=== PATIENT | male | born 1970 | race Hispanic/Latino ===

== ENCOUNTER 2017-07-09 00:39 | Emergency (ER) | payer MEDICAID, OTHER, SELFPAY ==
[2017-07-09 00:57] VITALS: BMI 30.1
[2017-07-09] MEDS ORDERED: Thiamine 100 mg/ml Inj IM STA (01:20)
[2017-07-09] MEDS ORDERED: Sodium Chloride 0.9% 500 ML IV SCH (01:27)
[2017-07-09] MEDS ORDERED: Sodium Chloride 0.9% 500 ML IV STA (01:31)
[2017-07-09] MEDS ORDERED: Multivitamin (MVI) 10 ML, Thiamine 100 MG, Folic Acid 1 MG in Sodium Chloride 0.9% 1,00... IV ONE (01:31)
[2017-07-09 02:01] LABS: BASO # 0.04 K/mm3 (0.0-2.0); BASO % 0.5 % (0.0-3.0); EOS # 0.3 (0.0-0.7); GRAN # 3.44 (1.4-6.5); GRAN % 40.2 % (50.0-68.0); HEMATOCRIT 42.6 % (42.0-52.0); LYMPH # 4.2 (1.2-3.4); LYMPH % 48.7 % (22.0-35.0); MEAN CELL VOLUME 91.2 fl (80.0-105.0); MEAN CORPUSCULAR HEMOGLOBIN 31.9 pg (25.0-35.0); MEAN PLATELET VOLUME 9.5 fl (7.0-11.0); MONO # 0.6 (0.1-0.6); MONO % 6.6 % (1.0-6.0); RED CELL DISTRIBUTION WIDTH 13.9 % (11.5-14.5); WHITE BLOOD COUNT 8.5 10^3/ul (4.5-11.0)
[2017-07-09 02:20] LABS: ALB/GLOB RATIO 1.3 (1.1-1.8); ALKALINE PHOSPHATASE 66 U/L (38-126); ALT/SGPT 30 U/L (7-56); AMYLASE 53 U/L (35-125); AST/SGOT 27 U/L (17-59); BILIRUBIN,TOTAL 0.6 mg/dL (0.2-1.3); BLOOD UREA NITROGEN 14 mg/dL (7-21); CALCIUM 9.2 mg/dL (8.4-10.5); CARBON DIOXIDE 23 mmol/L (21-33); CHLORIDE 106 mmol/L (98-107); CHOLESTEROL 193 mg/dL (130-200); GFR AFRICAN-AMERICAN > 60; GLUCOSE,RANDOM 100 mg/dL (70-110); LIPASE 136 U/L (23-300); MAGNESIUM 1.8 mg/dL (1.7-2.2); PHOSPHOROUS 4.5 mg/dL (2.5-4.5); POTASSIUM 3.6 mmol/L (3.6-5.0); SODIUM 143 mmol/L (132-148)
--- NOTE | 2017-07-09 03:05 | ED PDOC ---
Arrival/HPI - General Historian: Patient EM Caveat: Acuity of Condition - History of Present Illness Time/Duration: Prior to Arrival Symptom Onset: Gradual Symptom Course: Unchanged Quality: Aching Severity Level: 6 - General Chief Complaint: Alcohol Ingestion Time Seen by Provider: 07/09/17 00:59 - Critical Care Narrative Critical Care (Text): Patient is a 47 year old male who [place] [facility] [place] with complaints of alcohol abuse and stomach pain. Patient states that he was initially sober for a year until a week ago upon finding out that his ex was having relations with her son's best friend. Patient states he was drinking 3 pints of vodka a day for the past week until he decided to attempt to stop the night of 07/06. Patient states the next morning he felt like he was going to pass out at work due to not having a drink prompting him to leave work early and go home to consume 1.5 pints of vodka. Patient states that on 07/08 he decided he needed help and decided to come to the ER. Patient denies chest pain, shortness of breath, dizziness, diarrhea, nausea. (TRES ANTONIO) Past Medical History - Provider Review Nursing Documentation Reviewed: Yes - Cardiac Hx Cardiac Disorders: No - Pulmonary Hx Respiratory Disorders: No - Neurological Hx Neurological Disorder: No - HEENT Hx HEENT Disorder: No - Renal Hx Renal Disorder: No - Endocrine/Metabolic Hx Endocrine Disorders: No - Hematological/Oncological Hx Blood Disorders: No - Integumentary Hx Dermatological Disorder: No - Musculoskeletal/Rheumatological Hx Musculoskeletal Disorders: No - Gastrointestinal Hx Gastrointestinal Disorders: No - Genitourinary/Gynecological Hx Genitourinary Disorders: No - Psychiatric Hx Psychophysiologic Disorder: No Hx Substance Use: Yes - Surgical History Other/Comment: right ankle surgery. - Anesthesia Hx Anesthesia: Yes Hx Anesthesia Reactions: No Family/Social History - Physician Review Nursing Documentation Reviewed: Yes Family/Social History: Other (Significant for alcohol abuse both maternal and paternal family members) Smoking Status: Heavy Smoker > 10 Cigarettes Daily Hx Alcohol Use: Yes Frequency of alcohol use: Daily (3 pints of vodka daily) Hx Substance Use: Yes Substance used: morphine, oxycodone Allergies/Home Meds Allergies/Adverse Reactions: Allergies No Known Allergies Allergy (Verified 07/09/17 00:57) Home Medications: Home Meds Medication Instructions Recorded Confirmed No Known Home Med 07/09/17 07/09/17 Review of Systems - Physician Review All systems were reviewed & negative as marked: Yes - Review of Systems Respiratory: absent: SOB Cardiovascular: absent: Chest Pain Gastrointestinal: Abdominal Pain Physical Exam Vital Signs Reviewed: Yes Appearance: Positive for: Well-Appearing, Non-Toxic, Comfortable Pain Distress: None Mental Status: Positive for: Alert and Oriented X 3 - Systems Exam Head: Present: Atraumatic, Normocephalic Mouth: Present: Dry Respiratory/Chest: Present: Clear to Auscultation, Good Air Exchange Cardiovascular: Present: Regular Rate and Rhythm, Normal S1, S2 Abdomen: Present: Tenderness, Normal Bowel Sounds, Other (abdominal striae). No : Peritoneal Signs, Guarding Upper Extremity: Present: Normal Inspection Lower Extremity: Present: Normal Inspection Neurological: Present: CN II-XII Intact Skin: Present: Dry, Normal Color Psychiatric: Present: Alert, Oriented x 3 Medical Decision Making - Lab Interpretations I have reviewed the lab results: Yes ED Course and Treatment: Assessment 47 year old male patient presents with desire for alcohol detoxification Plan - Psych evaluation for possible transfer to [facility] [place] for alcohol detox once alcohol level reaches at least 150 - If not able to transfer to [facility] [place], will prescribe Librium and discharge 07/09/17 06:55 (TRES ANTONIO) 700am pt s/o to Dr Gonzalez- pending final psych recs- transfer to detox bed vs dc home. (Otis Rodrigues) - Lab Interpretations Lab Results: 07/09/17 01:44 07/09/17 01:44 Lab Results 07/09/17 13:00: Urine Color Yellow, Urine Appearance Sl cloudy, Urine pH 6.5, Ur Specific [place] 1.020, Urine Protein Negative, Urine Glucose (UA) Negative, Urine Ketones Trace H, Urine Blood Moderate H, Urine Nitrate Negative, Urine Bilirubin Negative, Urine Urobilinogen 0.2, Ur Leukocyte Esterase Negative, Urine RBC 5 - 10, Urine WBC 2 - 5, Ur Epithelial Cells 3 - 4, Urine Bacteria Mod 07/09/17 13:00: Urine Opiates Screen Negative, Urine Methadone Screen Negative, Ur Barbiturates Screen Negative, Ur Phencyclidine Scrn Negative, Ur Amphetamines Screen Negative, U Benzodiazepines Scrn Negative, U Oth Cocaine Metabols Negative, U Cannabinoids Screen Negative 07/09/17 01:44: Salicylates < 1 L, Acetaminophen < 10.0 L 07/09/17 01:44: Alcohol, Quantitative 268 H 07/09/17 01:44: Sodium 143, Potassium 3.6, Chloride 106, Carbon Dioxide 23, Anion Gap 18, BUN 14, Creatinine 0.7, Est GFR ( Amer) > 60, Est GFR (Non- Af Amer) > 60, Random Glucose 100, Calcium 9.2, Phosphorus 4.5, Magnesium 1.8, Total Bilirubin 0.6, AST 27, ALT 30, Alkaline Phosphatase 66, Total Protein 7.0 , Albumin 4.0, Globulin 3.0, Albumin/Globulin Ratio 1.3, Triglycerides 193 H, Cholesterol 193, LDL Cholesterol Direct 117, HDL Cholesterol 62 H, Amylase 53, Lipase 136 07/09/17 01:44: WBC 8.5, RBC 4.67, Hgb 14.9, Hct 42.6, MCV 91.2, MCH 31.9, MCHC 35.0, RDW 13.9, Plt Count 242, MPV 9.5, Gran % 40.2 L, Lymph % (Auto) 48.7 H, [place] % (Auto) 6.6 H, Eos % (Auto) 4.0, Baso % (Auto) 0.5, Gran # 3.44, Lymph # 4.2 H, [place] # 0.6, Eos # 0.3, Baso # 0.04 - Medication Orders Current Medication Orders: Discontinued Medications Famotidine (Pepcid) 20 mg IVP STAT STA Stop: 07/09/17 01:22 Last Admin: 07/09/17 01:48 Dose: 20 mg Multivitamins/Vitamin C 10 ml/Thiamine HCl 100 mg/ Folic Acid 1 mg/ Sodium Chloride 1,011.2 mls @ 100 mls/hr IV ONCE ONE Stop: 07/09/17 11:37 Last Admin: 07/09/17 03:50 Dose: 100 mls/hr Sodium Chloride (Sodium Chloride 0.9%) 500 mls @ 1,000 mls/hr IV .Q30M STA Stop: 07/09/17 02:00 Last Admin: 07/09/17 01:49 Dose: 1,000 mls/hr Thiamine HCl (Vitamin B1 Inj) 100 mg IM STAT STA Stop: 07/09/17 01:21 Last Admin: 07/09/17 01:49 Dose: 100 mg Disposition/Present on Arrival - Present on Arrival Any Indicators Present on Arrival: No History of DVT/PE: No History of Uncontrolled Diabetes: No Urinary Catheter: No History of Decub. Ulcer: No History Surgical Site Infection Following: None - Disposition Have Diagnosis and Disposition been Completed?: Yes Disposition Time: 06:54 Patient Plan: Transfer To ([facility] when alcohol level reaches 150) - Disposition Diagnosis: Alcohol abuse with intoxication Disposition: HOME/ ROUTINE Condition: GOOD Discharge Instructions (ExitCare): Alcohol Dependence (ED) Additional Instructions: Thank you for letting us take care of you today. You were treated for alcohol abuse/dependence. The emergency medical care you received today was directed at your acute symptoms. If you were prescribed any medication, please fill it and take as directed. It may take several days for your symptoms to resolve. Return to the Emergency Department if your symptoms worsen, do not improve, or if you have any other problems. Please contact your doctor or call one of the physicians/clinics you have been referred to that are listed on the Patient Visit Information form that is included in your discharge packet. Bring any paperwork you were given at discharge with you along with any medications you are taking to your follow up visit. Our treatment cannot replace ongoing medical care by a primary care provider (PCP) outside of the emergency department. Thank you for allowing the [facility] team to be part of your care today. Follow up at [facility] emergency room tomorrow for evaluation. Referrals: PCP,NO [Primary Care Provider] - Follow up with primary Forms: [employer] ([place])
[2017-07-09 10:38] VITALS: TEMP 98.2
[2017-07-09 13:07] LABS: PH,URINE 6.5 (4.7-8.0); URINE BILIRUBIN NEGATIVE (NEGATIVE); URINE BLOOD MODERATE (NEGATIVE); URINE GLUCOSE (UA) NEGATIVE (NEGATIVE); URINE KETONE TRACE mg/dL (NEGATIVE); URINE LEUKOCYTE ESTERASE NEGATIVE Leu/uL (NEGATIVE); URINE PROTEIN NEGATIVE mg/dL (<30 mg/dL); URINE UROBILINOGEN 0.2 E.U./dL (<1 E.U./dL)
[2017-07-09 13:18] LABS: URINE APPEARANCE SL CLOUDY (CLEAR); URINE COLOR YELLOW (YELLOW)
[2017-07-09 13:31] LABS: URINE BACTERIA MOD (NEG)
[2017-07-09 13:32] VITALS: PULSE 86; RESP 18
[2017-07-09 14:35] VITALS: BP 137/75; O2SAT 98
--- NOTE | 2017-07-09 15:40 | CARD ---
APPROVED REPORT EKG Measurement Heart [id number] ID [id number] <Conclusion> Normal sinus rhythm Nonspecific intraventricular conduction delay Borderline ECG
== END 2017-07-09 14:35 | disposition home or self-care (01) ==
LOC: ED 00:39
DX: F10.129 Alcohol abuse with intoxication, unspecified (principal); Y90.8 Blood alcohol level of 240 mg/100 ml or more
CPT/HCPCS: 80053; 80061; 80320; 80324; 80329; 80345; 80346; 80349; 80353; 80358; 80361; 81001; 82150; 83690; 83735; 83992; 84100; 85025; 90791; 93005; 96372; 96374; 99284; J3411; J7040

== ENCOUNTER 2017-08-03 19:32 | Inpatient (IN) | payer MEDICAID ==
[2017-08-03 19:34] VITALS: BMI 30.1
[2017-08-03 20:23] LABS: BASO # 0.04 K/mm3 (0.0-2.0); BASO % 0.5 % (0.0-3.0); EOS # 0.3 (0.0-0.7); EOS % 4.1 % (1.5-5.0); GRAN # 2.93 (1.4-6.5); LYMPH # 3.8 (1.2-3.4); LYMPH % 50.9 % (22.0-35.0); MEAN CELL VOLUME 91.1 fl (80.0-105.0); MEAN CORPUSCULAR HEMOGLOBIN 32.3 pg (25.0-35.0); MEAN CORPUSCULAR HGB CONC 35.4 g/dl (31.0-37.0); MEAN PLATELET VOLUME 9.7 fl (7.0-11.0); MONO # 0.4 (0.1-0.6); MONO % 5.5 % (1.0-6.0); RED CELL DISTRIBUTION WIDTH 13.8 % (11.5-14.5); WHITE BLOOD COUNT 7.5 10^3/ul (4.5-11.0)
[2017-08-03 20:25] LABS: ALB/GLOB RATIO 1.2 (1.1-1.8); ALKALINE PHOSPHATASE 74 U/L (38-126); ALT/SGPT 26 U/L (7-56); AST/SGOT 27 U/L (17-59); BILIRUBIN,TOTAL 0.7 mg/dL (0.2-1.3); BLOOD UREA NITROGEN 10 mg/dL (7-21); CALCIUM 9.4 mg/dL (8.4-10.5); CARBON DIOXIDE 23 mmol/L (21-33); CHLORIDE 110 mmol/L (95-110); GFR AFRICAN-AMERICAN > 60; GLUCOSE,RANDOM 108 mg/dL (70-110); POTASSIUM 3.9 mmol/L (3.6-5.0); SODIUM 149 mmol/L (132-148); TOTAL PROTEIN 7.9 g/dL (5.8-8.3)
[2017-08-03 21:11] LABS: URINE BILIRUBIN NEGATIVE (NEGATIVE); URINE BLOOD MODERATE (NEGATIVE); URINE GLUCOSE (UA) NEGATIVE (NEGATIVE); URINE KETONE NEGATIVE (NEGATIVE); URINE LEUKOCYTE ESTERASE NEGATIVE Leu/uL (NEGATIVE); URINE PROTEIN NEGATIVE mg/dL (<30 mg/dL); URINE UROBILINOGEN 0.2 E.U./dL (<1 E.U./dL)
[2017-08-03 21:14] LABS: URINE APPEARANCE CLEAR (CLEAR); URINE COLOR YELLOW (YELLOW)
[2017-08-03 21:35] LABS: URINE EPITHELIAL CELLS 0 - 2 /hpf (0-5); URINE RBC 0 - 2 /hpf (0-2); URINE WBC 0 - 2 /hpf (0-6)
[2017-08-03 21:36] LABS: URINE BACTERIA TRACE (NEG)
--- NOTE | 2017-08-03 22:45 | ED PDOC ---
Arrival/HPI - General Chief Complaint: Psychiatric Evaluation Time Seen by Provider: 08/03/17 19:45 Historian: Patient - History of Present Illness Narrative History of Present Illness (Text): 08/03/17 22:44 A 47 year old male presents to the emergency department complaining of depression and suicidal ideation. Patient's family reports patient wanted to kill himself. Patient reports he has been drinking alcohol for the past three days. Patient denies any fever, headache, dizziness, homicidal ideation or any other complaints at this time. Symptom Onset: Sudden Symptom Course: Unchanged Activities at Onset: Rest Context: Home Past Medical History - Provider Review Nursing Documentation Reviewed: Yes - Cardiac Hx Cardiac Disorders: No - Pulmonary Hx Respiratory Disorders: No - Neurological Hx Neurological Disorder: No - HEENT Hx HEENT Disorder: No - Renal Hx Renal Disorder: No - Endocrine/Metabolic Hx Endocrine Disorders: No - Hematological/Oncological Hx Blood Disorders: No - Integumentary Hx Dermatological Disorder: No - Musculoskeletal/Rheumatological Hx Musculoskeletal Disorders: Yes Other/Comment: FX AMARI R - Gastrointestinal Hx Gastrointestinal Disorders: No - Genitourinary/Gynecological Hx Genitourinary Disorders: No - Psychiatric Hx Psychophysiologic Disorder: No Hx Substance Use: Yes - Surgical History Hx Orthopedic Surgery: Yes Other/Comment: right ankle surgery. - Anesthesia Hx Anesthesia: Yes Hx Anesthesia Reactions: No Family/Social History - Physician Review Nursing Documentation Reviewed: Yes Family/Social History: No Known Family HX Smoking Status: Heavy Smoker > 10 Cigarettes Daily Hx Alcohol Use: Yes Hx Substance Use: Yes Substance used: morphine, oxycodone Allergies/Home Meds Allergies/Adverse Reactions: Allergies No Known Allergies Allergy (Verified 08/03/17 19:38) Home Medications: Home Meds Medication Instructions Recorded Confirmed No Known Home Med 07/09/17 08/03/17 Review of Systems - Physician Review All systems were reviewed & negative as marked: Yes - Review of Systems Constitutional: absent: Fevers Neurological: absent: Headache, Dizziness Psychiatric: Depression, Suicidal Ideation. absent: Other (homicidal ideation) Physical Exam Vital Signs Reviewed: Yes Vital Signs Temp Pulse Resp BP Pulse Ox 08/03/17 23:09 98.3 F 93 H 18 125/74 95 08/03/17 19:38 98.8 F 120 H 16 131/97 H 96 Temperature: Afebrile Blood Pressure: Hypertensive Pulse: Tachycardic Respiratory Rate: Normal Appearance: Positive for: Well-Appearing, Non-Toxic, Comfortable Pain Distress: None Mental Status: Positive for: Alert and Oriented X 3 - Systems Exam Head: Present: Atraumatic, Normocephalic Pupils: Present: PERRL Extroacular Muscles: Present: EOMI Conjunctiva: Present: Normal Mouth: Present: Moist Mucous Membranes Neck: Present: Normal Range of Motion Respiratory/Chest: Present: Clear to Auscultation, Good Air Exchange. No: Respiratory Distress, Accessory Muscle Use Cardiovascular: Present: Regular Rate and Rhythm, Normal S1, S2. No: Murmurs Abdomen: Present: Normal Bowel Sounds. No: Tenderness, Distention, Peritoneal Signs Back: Present: Normal Inspection Upper Extremity: Present: Normal Inspection. No: Cyanosis, Edema Lower Extremity: Present: Normal Inspection. No: Edema Neurological: Present: GCS=15, CN II-XII Intact, Speech Normal Skin: Present: Warm, Dry, Normal Color. No: Rashes Psychiatric: Present: Alert, Oriented x 3, Depressed Mood, Suicidal Ideation Medical Decision Making ED Course and Treatment: 08/03/17 22:42 Impression: A 47 year old male with alcohol intoxication, depression and suicidal ideation. Plan: -- EKG -- chest xray -- labs -- Urinalysis -- Reassess and disposition Prior Visits: Notes and results from previous visits were reviewed. Patient last reported to the emergency department on 07/09/17 for evaluation of alcohol abuse and stomach pain. Progress Notes: EKG: Ordered, reviewed, and independently interpreted the EKG. Rate : 85 BPM Rhythm : NSR Interpretation : No ST-segment elevations or depressions, normal intervals. chest xray: No active disease, interpreted by me. pt seen by pes accepted for depression 08/04/17 01:17 - Lab Interpretations Lab Results: 08/03/17 20:05 08/03/17 20:05 Lab Results 08/03/17 21:00: Urine Opiates Screen Negative, Urine Methadone Screen Negative, Ur Barbiturates Screen Negative, Ur Phencyclidine Scrn Negative, Ur Amphetamines Screen Negative, U Benzodiazepines Scrn Negative, U Oth Cocaine Metabols Negative, U Cannabinoids Screen Negative 08/03/17 21:00: Urine Color Yellow, Urine Appearance Clear, Urine pH 6.0, Ur Specific [place] <= 1.005, Urine Protein Negative, Urine Glucose (UA) Negative, Urine Ketones Negative, Urine Blood Moderate H, Urine Nitrate Negative, Urine Bilirubin Negative, Urine Urobilinogen 0.2, Ur Leukocyte Esterase Negative, Urine RBC 0 - 2, Urine WBC 0 - 2, Ur Epithelial Cells 0 - 2, Urine Bacteria Trace 08/03/17 20:05: Alcohol, Quantitative 368 H* 08/03/17 20:05: Salicylates < 1 L, Acetaminophen < 10.0 L 08/03/17 20:05: Sodium 149 H, Potassium 3.9, Chloride 110, Carbon Dioxide 23, Anion Gap 20, BUN 10, Creatinine 0.8, Est GFR ( Amer) > 60, Est GFR (Non- Af Amer) > 60, Random Glucose 108, Calcium 9.4, Total Bilirubin 0.7, AST 27, ALT 26, Alkaline Phosphatase 74, Total Protein 7.9, Albumin 4.3, Globulin 3.5, Albumin/Globulin Ratio 1.2 08/03/17 20:05: WBC 7.5, RBC 5.27, Hgb 17.0 D, Hct 48.0, MCV 91.1, MCH 32.3, MCHC 35.4, RDW 13.8, Plt Count 277, MPV 9.7, Gran % 39.0 L, Lymph % (Auto) 50.9 H, [place] % (Auto) 5.5, Eos % (Auto) 4.1, Baso % (Auto) 0.5, Gran # 2.93, Lymph # 3.8 H, [place] # 0.4, Eos # 0.3, Baso # 0.04 I have reviewed the lab results: Yes - RAD Interpretation Radiology Orders: 08/03/17 19:47 CHEST PORTABLE [RAD] Stat - EKG Interpretation Interpreted by ED Physician: Yes Type: 12 lead EKG - Medication Orders Current Medication Orders: Folic Acid (Folic Acid) 1 mg PO DAILY YEYO Lorazepam (Ativan) 2 mg PO Q6 YEYO PRN Reason: Protocol Multivitamins (Thera Tab) 1 tab PO 0800 YEYO Thiamine HCl (Vitamin B1 Tab) 100 mg PO DAILY YEYO Trazodone HCl (Desyrel) 50 mg PO HS [facility] Last Admin: 08/04/17 00:04 Dose: 50 mg Ziprasidone (Geodon Inj) 10 mg IM Q6 PRN; Protocol PRN Reason: Agitation Discontinued Medications Lorazepam (Ativan) 2 mg PO ONCE ONE PRN Reason: Protocol Stop: 08/03/17 23:46 Last Admin: 08/04/17 00:04 Dose: 2 mg Behavioural Document 08/04/17 00:04 EOO (Rec: 08/04/17 00:05 EOO [id number]) Maintenance Maintenance Dose Yes Nonmedicinal Nonmedicinal Interventions Therapeutic Communication Behavior Behavior for Medication: Anxiety - Scribe Statement The provider has reviewed the documentation as recorded by the Chaya Long Provider Scribe Attestation: All medical record entries made by the Chaya were at my direction and personally dictated by me. I have reviewed the chart and agree that the record accurately reflects my personal performance of the history, physical exam, medical decision making, and the department course for this patient. I have also personally directed, reviewed, and agree with the discharge instructions and disposition. Disposition/Present on Arrival - Present on Arrival Any Indicators Present on Arrival: No History of DVT/PE: No History of Uncontrolled Diabetes: No Urinary Catheter: No History of Decub. Ulcer: No History Surgical Site Infection Following: None - Disposition Have Diagnosis and Disposition been Completed?: Yes Diagnosis: Depression Disposition: HOSPITALIZED Disposition Time: 22:30 Condition: FAIR
--- NOTE | 2017-08-04 05:36 | PCM.BM ---
<Calixto Grace Marcelino - Last Filed: 08/04/17 05:33> Treatment Plan Problems - Problems identified on initial assessmt substance abuse Date Initiated: 08/03/17 Time Initiated: 23:45 Assessment reference: NA Status: Active Priority: 2 withdrawal Date Initiated: 08/03/17 Time Initiated: 23:40 Assessment reference: NA Status: Active Priority: 1 Treatment assets and liabiliti Patient Assests: cooperative, ADL independent Patient Liabilities: financial problems, poor support system - Milieu Protocol Maintain good personal hygiene: daily Encourage regular showers, daily Remind patient to perform daily oral care, daily Assist patient to perform ADL's Maintain personal safety: daily Educate patient to report safety concerns to staff, daily Monitor environment for contraband/sharps Medication safety: Monitor for expected outcome, potential side effects: daily, Assess barriers to learning: daily, Assess readiness for medication education: daily Family Contact Family involvement: Family/SO is involved Family contact name: Kelvin - Goals for Treatment Patient goals for treatment: To get sober Discharge/Continuing Care - Education Needs Education Needs: Patient Medication, Patient Diagnosis/Disease Process, Patient Coping Skills - Discharge Discharge Criteria: Free of Suicidal thoughts <Cheikh Jara - Last Filed: 08/04/17 09:36> - Milieu Protocol Maintain good personal hygiene: daily Encourage regular showers, daily Remind patient to perform daily oral care, daily Assist patient to perform ADL's Maintain personal safety: daily Educate patient to report safety concerns to staff, daily Monitor environment for contraband/sharps Medication safety: Monitor for expected outcome, potential side effects: daily, Assess barriers to learning: daily, Assess readiness for medication education: daily Discharge/Continuing Care - Education Needs Education Needs: Patient Medication, Patient Diagnosis/Disease Process, Patient Coping Skills, Patient Anger Management skills, Patient Placement options, Patient Activities of Daily Living, Patient Health Practices/Safety, Patient Personal Hygiene/Grooming, Patient Aftercare Safety Plan, Patient Other - Discharge Discharge Criteria: Free of agitation <Ashleigh Bunch - Last Filed: 08/04/17 13:32>
[2017-08-04 08:00] LABS: CHOLESTEROL 207 mg/dL (130-200)
[2017-08-04] MEDS: Multivitamin Therapeutic Tab PO SCH (09:20)
--- NOTE | 2017-08-04 09:21 | RAD ---
HISTORY: pes COMPARISON: No prior. FINDINGS: LUNGS: No active pulmonary disease. PLEURA: No significant pleural effusion identified, no pneumothorax apparent. CARDIOVASCULAR: Normal. OSSEOUS STRUCTURES: No significant abnormalities. VISUALIZED UPPER ABDOMEN: Normal. OTHER FINDINGS: None. IMPRESSION: No acute cardiopulmonary disease appreciated.
--- NOTE | 2017-08-04 11:37 | CARD ---
APPROVED REPORT EKG Measurement Heart [id number] <Conclusion> Normal sinus rhythm Normal ECG
--- NOTE | 2017-08-04 12:05 | CON ---
HISTORY OF PRESENT ILLNESS: I was consulted to see the patient in the psychiatric floor. He is resting comfortably in bed. He comes in with suicidal ideation and depression. He has also been drinking. He says he drinks everyday and he wants to kill himself. He did not sleep much last night and I still think he is still very much drunk a little bit. He is also a major smoker. PAST MEDICAL HISTORY: He has a past medical history of being an alcoholic. He had a right ankle fracture, substance abuse. PAST SURGICAL HISTORY: He had surgery of the right ankle. FAMILY HISTORY: Does not know his family history. SOCIAL HISTORY: He is heavy smoker, still smokes every day, alcohol everyday, Morphine and oxycodone, substance abuse. ALLERGIES: HE HAS NO KNOWN DRUG ALLERGIES. MEDICATIONS: He does not take any medications. REVIEW OF SYSTEMS: He comes in full inebriated at this time, dizzy and lightheaded and just tired. No chest pain. No shortness of breath. No abdominal pain. This is as good as I could get from him. He was suicidal and depressed when he came in. Not that worry at this time. PHYSICAL EXAMINATION: VITAL SIGNS: He has a 98.3 temp, 93 pulse, 18 respiratory rate, 125/74 blood pressure, 95% O2 sat on room air. HEENT: Head is atraumatic, normocephalic. He is alert, a little dazed. Extraocular muscles are intact. Pupils are equal and reactive to light. Throat is moist. NECK: Supple. HEART: Regular rate. Normal S1 and S2. LUNGS: Decreased breath sounds bilaterally. Poor inspiration. He also has some wheezes, changes with cough, definitely sounds like a smoker. ABDOMEN: Soft and nontender. Positive bowel sounds. EXTREMITIES: No edema. NEUROLOGIC: GCS is 15. Cranial nerves II through XII grossly intact. SKIN: Warm and dry. He is alert, a little dazed, not in a mood to be evaluated at this time, definitely depressed mood. I do not think he is suicidal at this time, told little better feeling that way, but when he came in, he felt that way. MEDICATIONS: He is currently on Ativan, Desyrel, folic acid, Geodon, Feritez, vitamin B1 and I gave him some Nicoderm patch. LABORATORY DATA: He has a 7.5 white count, 17 hemoglobin, 48 hematocrit with a 277 platelets. 149 sodium, potassium 3.9, BUN 10, creatinine 0.8, GFR is greater than 60, sugar is 108, calcium is 9.4. Total brenda is 0.7, AST is 27, ALT 26, alkaline phosphatase 74, total protein 7.9, albumin is 4.3. Triglycerides are high at 287, cholesterol is 207, high LDL is 106, HDL is 32. TSH is 2.62. Urine has moderate blood, we will repeat that and his alcohol level is only 368. ASSESSMENT: He is here for suicidal ideation, depression, alcohol abuse, smoker and a little bit of hematuria. I encouraged him to drink more water. I gave him a Nicoderm patch. We will repeat the labs and the urine. Hopefully, the urine will clear and he drinks more fluid as per psychiatry. Thank you for allowing me to be involved with his care. Harpreet Marley DO MTDD
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
[2017-08-05 07:30] LABS: HEMATOCRIT 42.6 % (42.0-52.0); MEAN CELL VOLUME 91.2 fl (80.0-105.0); MEAN CORPUSCULAR HEMOGLOBIN 31.7 pg (25.0-35.0); MEAN CORPUSCULAR HGB CONC 34.7 g/dl (31.0-37.0); MEAN PLATELET VOLUME 9.6 fl (7.0-11.0); RED CELL DISTRIBUTION WIDTH 13.7 % (11.5-14.5)
[2017-08-05 07:41] LABS: ALB/GLOB RATIO 1.2 (1.1-1.8); ALKALINE PHOSPHATASE 62 U/L (38-126); ALT/SGPT 33 U/L (7-56); AST/SGOT 23 U/L (17-59); BILIRUBIN,TOTAL 1.6 mg/dL (0.2-1.3); BLOOD UREA NITROGEN 16 mg/dL (7-21); CARBON DIOXIDE 27 mmol/L (21-33); CHLORIDE 105 mmol/L (95-110); GFR AFRICAN-AMERICAN > 60; GLUCOSE,RANDOM 89 mg/dL (70-110); POTASSIUM 3.8 mmol/L (3.6-5.0); SODIUM 139 mmol/L (132-148); TOTAL PROTEIN 6.7 g/dL (5.8-8.3)
[2017-08-05] MEDS: Multivitamin Therapeutic Tab PO SCH (08:52)
--- NOTE | 2017-08-05 10:14 | PN ---
DATE: SUBJECTIVE: I saw Austin in a psychiatric floor, still sleepy in bed. He tells me mentally he is not , but physically he is improving slowly. He is also hungry. MEDICATIONS: He is on Ativan, folic acid, Geodon, Nicoderm, Paxil, Seroquel, Feritez, vitamin, and Zofran. PHYSICAL EXAMINATION VITAL SIGNS: He has a 97.8 temperature, 60 pulse, 121/80 blood pressure, 20 respiratory rate, 95% sat on room air. HEENT: Head is atraumatic, normocephalic. HEART: Regular rate. LUNGS: Clear to auscultation. ABDOMEN: Soft. EXTREMITIES: No edema. LABORATORY DATA: He has a 8 white count, 14.8 hemoglobin, 42.6 hematocrit with a 228 platelets. 139 sodium, potassium 3.8, BUN 16, creatinine 0.8, sugar is 89, calcium is 9. Total brenda is 1.6, AST is 23, ALT 33, alkaline phosphatase 52, total protein 6.7, and TSH is 2.62. He is status post alcohol abuse and elevated alcohol level. Also with depression, suicidal, and some hematuria. ASSESSMENT AND PLAN: Right now he is improving a little bit. Hopefully, he will continue to improve as per psychiatry and hopefully he will not smoke or drink anymore. I discussed that with him. Harpreet Marley DO MTDD
--- NOTE | 2017-08-05 14:48 | PCM.PYCHPN ---
Psychiatric Progress Note - Psychiatric Progress Note Patient seen today, length of contact: 30min Patient Chief Complaint: "I am doing little better" Medical Problems: HTN, withdrawals Diagnostic Results: 08/05/17 07:00 08/05/17 07:00 Lab Results 08/05/17 07:00: Sodium 139, Potassium 3.8, Chloride 105, Carbon Dioxide 27, Anion Gap 11, BUN 16, Creatinine 0.8, Est GFR ( Amer) > 60, Est GFR (Non- Af Amer) > 60, Random Glucose 89, Calcium 9.0, Total Bilirubin 1.6 H, AST 23, ALT 33, Alkaline Phosphatase 62, Total Protein 6.7, Albumin 3.7, Globulin 3.0, Albumin/Globulin Ratio 1.2 08/05/17 07:00: WBC 8.0, RBC 4.67, Hgb 14.8 D, Hct 42.6, MCV 91.2, MCH 31.7, MCHC 34.7, RDW 13.7, Plt Count 228, MPV 9.6 08/04/17 06:00: TSH 3rd Generation 2.62 08/04/17 06:00: Hemoglobin A1c 5.8 08/04/17 06:00: Triglycerides 287 H, Cholesterol 207 H, LDL Cholesterol Direct 106, HDL Cholesterol 52 08/03/17 21:00: Urine Opiates Screen Negative, Urine Methadone Screen Negative, Ur Barbiturates Screen Negative, Ur Phencyclidine Scrn Negative, Ur Amphetamines Screen Negative, U Benzodiazepines Scrn Negative, U Oth Cocaine Metabols Negative, U Cannabinoids Screen Negative 08/03/17 21:00: Urine Color Yellow, Urine Appearance Clear, Urine pH 6.0, Ur Specific [place] <= 1.005, Urine Protein Negative, Urine Glucose (UA) Negative, Urine Ketones Negative, Urine Blood Moderate H, Urine Nitrate Negative, Urine Bilirubin Negative, Urine Urobilinogen 0.2, Ur Leukocyte Esterase Negative, Urine RBC 0 - 2, Urine WBC 0 - 2, Ur Epithelial Cells 0 - 2, Urine Bacteria Trace 08/03/17 20:05: Alcohol, Quantitative 368 H* 08/03/17 20:05: Salicylates < 1 L, Acetaminophen < 10.0 L 08/03/17 20:05: Sodium 149 H, Potassium 3.9, Chloride 110, Carbon Dioxide 23, Anion Gap 20, BUN 10, Creatinine 0.8, Est GFR ( Amer) > 60, Est GFR (Non- Af Amer) > 60, Random Glucose 108, Calcium 9.4, Total Bilirubin 0.7, AST 27, ALT 26, Alkaline Phosphatase 74, Total Protein 7.9, Albumin 4.3, Globulin 3.5, Albumin/Globulin Ratio 1.2 08/03/17 20:05: WBC 7.5, RBC 5.27, Hgb 17.0 D, Hct 48.0, MCV 91.1, MCH 32.3, MCHC 35.4, RDW 13.8, Plt Count 277, MPV 9.7, Gran % 39.0 L, Lymph % (Auto) 50.9 H, [place] % (Auto) 5.5, Eos % (Auto) 4.1, Baso % (Auto) 0.5, Gran # 2.93, Lymph # 3.8 H, [place] # 0.4, Eos # 0.3, Baso # 0.04 Vital Signs Temp Pulse Resp BP Pulse Ox 08/05/17 07:00 97.8 F 57 L 20 121/80 08/05/17 06:50 97.8 F 60 20 121/80 08/04/17 16:00 95 H 125/89 08/04/17 07:03 97.9 F 84 17 94/57 L 08/03/17 23:09 98.3 F 93 H 18 125/74 95 08/03/17 19:38 98.8 F 120 H 16 131/97 H 96 DSM 5 Symptoms Update: Identifying Data: shortly pt is 47 yo male with self reported h/o PTSD , no h/o psychiatric admissions, pt has significant h/o alcohol use disorder more than 10 inpatient rehabs and detoxes, h/o opioid addiction, was brought in by his brother for evaluation of depression and suicidal ideation with plan to stab himself in the neck, pt reported these feelings to his AA meeting and brother was contacted by them. pt was seen in his room, presented to be sleepy, pt said he feels "little better with my withdrawals", pt c/o nausea , was advised to take zofran. pt reported that he still feels depressed and hopeless, denied thoughts of harming self or others. no physical signs of withdrawals, VS WNL. Psychosis: no signs of psychosis Review of Systems: see Medical consult. MSE:pt is sleepy, typical alcoholic habitus, poor personal hygiene, fair ADLs. 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 Impression: r/o MDD r/o bipolar II r/o substance induced mood disorder alcohol use disorder alcohol withdrawal syndrome, uncomplicated opioid use disorder, in remission (as per pt last use was about 4-5 months ago) Treatment plan: Milieu/structure/supportive therapy Medical consult appreciated, see medical team note for more detailed info SW consultation for discharge plan and social issues Med management MVI, thiamine, folic acid paxil 10mg hs for mdd and anxiety seroquel 50mg po hs for mood stabilization naltrexon was offered but pt wants to think about it ativan prn and scheduled (today will be 2mg po tid scheduled) for alcohol withdrawals VS will be checked q6h and PRN of ativan will be given Family involvement SW evaluation for possible inpatient rehab Follow up on labs Will monitor closely Pt was educated about risk/benefits and alternatives of medications, coping strategies (safety plan, suicide prevention), relapse prevention, importance of follow up with psychiatrist and therapist, stay away from drugs/alcohol/smoking Medication Change: Yes (ativan decresaed) Medical Record Reviewed: Yes Consults ordered or reviewed: medical consult appreciated Mental Status Examination - Homicidal Ideation Homicidal Ideation: No Goal/Treatment Plan - Goal/Treatment Plan Need for Continued Stay: Remain at risks for inpatient hospitalization, Severe depression anxiety, Discharge may exacerbated symptoms, Severe functional impairment Estimated Date of D/C: 08/13/17
[2017-08-06] MEDS ORDERED: Alum-Mag Hydrox-Simethicone Susp (30 mL) PO PRN (07:02)
[2017-08-06] MEDS ORDERED: Magnesium Hydroxide Susp 30 ml UD PO PRN (07:02)
[2017-08-06] MEDS: Multivitamin Therapeutic Tab PO SCH (09:08)
--- NOTE | 2017-08-06 09:50 | PN ---
SUBJECTIVE: He is from out of bed to chair, watching TV this morning. He slept fairly well. He is a little bit groggy. He remembered me. I asked him about the other doctors, he did not remember them. He was asking about going home, I do not think he is ready full out of it, sort of very sluggish this morning. PHYSICAL EXAMINATION: VITAL SIGNS: He has a 97.8 temperature, 78 pulse, 130/84 blood pressure, 20 respiratory rate. HEENT: His head is atraumatic and normocephalic. HEART: Regular rate. LUNGS: Clear to auscultation. ABDOMEN: Soft. EXTREMITIES: No edema. MEDICATIONS: He is currently on Ativan, folic acid, Geodon, Maalox, milk of magnesium, Nicoderm, Paxil, Seroquel, Feritez, Tylenol, vitamin B1, and Zofran. LABORATORY DATA: Last labs from the were okay. The urine was having moderate blood at that time. He had good labs on the with 139 sodium, potassium 3.8, BUN 16, creatinine 0.8, GFR was greater than 60, sugar was 89, calcium was 9. Total bili was 1.6, AST was 23, ALT was 33, alk phos 62. White count was 8, hemoglobin 14.8, platelets were 228. PLAN: I encourage him to participate in groups, take the medications, follow as per psychiatry. He understands, but he is not on 100% yet of the will not do drugs or alcohol anymore and behave. He has multiple issues from alcohol abuse, substance abuse, major depression disorder, possible bipolar. As per psychiatry, we will follow, slowly improving. Harpreet Marley DO
--- NOTE | 2017-08-06 15:19 | PCM.PYCHPN ---
Psychiatric Progress Note - Psychiatric Progress Note Patient seen today, length of contact: 30min Patient Chief Complaint: "I have these crazy dreams..." Medical Problems: HTN, withdrawals Diagnostic Results: 08/05/17 07:00 08/05/17 07:00 Lab Results 08/05/17 07:00: Sodium 139, Potassium 3.8, Chloride 105, Carbon Dioxide 27, Anion Gap 11, BUN 16, Creatinine 0.8, Est GFR ( Amer) > 60, Est GFR (Non- Af Amer) > 60, Random Glucose 89, Calcium 9.0, Total Bilirubin 1.6 H, AST 23, ALT 33, Alkaline Phosphatase 62, Total Protein 6.7, Albumin 3.7, Globulin 3.0, Albumin/Globulin Ratio 1.2 08/05/17 07:00: WBC 8.0, RBC 4.67, Hgb 14.8 D, Hct 42.6, MCV 91.2, MCH 31.7, MCHC 34.7, RDW 13.7, Plt Count 228, MPV 9.6 08/04/17 06:00: TSH 3rd Generation 2.62 08/04/17 06:00: Hemoglobin A1c 5.8 08/04/17 06:00: Triglycerides 287 H, Cholesterol 207 H, LDL Cholesterol Direct 106, HDL Cholesterol 52 08/03/17 21:00: Urine Opiates Screen Negative, Urine Methadone Screen Negative, Ur Barbiturates Screen Negative, Ur Phencyclidine Scrn Negative, Ur Amphetamines Screen Negative, U Benzodiazepines Scrn Negative, U Oth Cocaine Metabols Negative, U Cannabinoids Screen Negative 08/03/17 21:00: Urine Color Yellow, Urine Appearance Clear, Urine pH 6.0, Ur Specific [place] <= 1.005, Urine Protein Negative, Urine Glucose (UA) Negative, Urine Ketones Negative, Urine Blood Moderate H, Urine Nitrate Negative, Urine Bilirubin Negative, Urine Urobilinogen 0.2, Ur Leukocyte Esterase Negative, Urine RBC 0 - 2, Urine WBC 0 - 2, Ur Epithelial Cells 0 - 2, Urine Bacteria Trace 08/03/17 20:05: Alcohol, Quantitative 368 H* 08/03/17 20:05: Salicylates < 1 L, Acetaminophen < 10.0 L 08/03/17 20:05: Sodium 149 H, Potassium 3.9, Chloride 110, Carbon Dioxide 23, Anion Gap 20, BUN 10, Creatinine 0.8, Est GFR ( Amer) > 60, Est GFR (Non- Af Amer) > 60, Random Glucose 108, Calcium 9.4, Total Bilirubin 0.7, AST 27, ALT 26, Alkaline Phosphatase 74, Total Protein 7.9, Albumin 4.3, Globulin 3.5, Albumin/Globulin Ratio 1.2 08/03/17 20:05: WBC 7.5, RBC 5.27, Hgb 17.0 D, Hct 48.0, MCV 91.1, MCH 32.3, MCHC 35.4, RDW 13.8, Plt Count 277, MPV 9.7, Gran % 39.0 L, Lymph % (Auto) 50.9 H, [place] % (Auto) 5.5, Eos % (Auto) 4.1, Baso % (Auto) 0.5, Gran # 2.93, Lymph # 3.8 H, [place] # 0.4, Eos # 0.3, Baso # 0.04 Vital Signs Temp Pulse Resp BP Pulse Ox 08/05/17 07:00 97.8 F 57 L 20 121/80 08/05/17 06:50 97.8 F 60 20 121/80 08/04/17 16:00 95 H 125/89 08/04/17 07:03 97.9 F 84 17 94/57 L 08/03/17 23:09 98.3 F 93 H 18 125/74 95 08/03/17 19:38 98.8 F 120 H 16 131/97 H 96 Temp Pulse Resp BP Pulse Ox 97.8 F 78 20 130/84 95 08/05/17 07:00 08/05/17 16:00 08/05/17 07:00 08/05/17 16:00 08/03/17 23:09 DSM 5 Symptoms Update: Identifying Data: shortly pt is 47 yo male with self reported h/o PTSD , no h/o psychiatric admissions, pt has significant h/o alcohol use disorder more than 10 inpatient rehabs and detoxes, h/o opioid addiction, was brought in by his brother for evaluation of depression and suicidal ideation with plan to stab himself in the neck, pt reported these feelings to his AA meeting and brother was contacted by them. pt was seen in his room, presented to be sleepy, pt said he feels "little better with my withdrawals, but I have these crazy dreams...", able to tolerate food. pt reported that he still feels depressed and hopeless, denied thoughts of harming self or others. no physical signs of withdrawals, VS WNL. Psychosis: no signs of psychosis pt tolerated meds well, no side effects observed or reported, AIMS 0, no EPS. Review of Systems: see Medical consult. MSE:pt is sleepy, typical alcoholic habitus, poor personal hygiene, fair ADLs. 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 Impression: r/o MDD r/o bipolar II r/o substance induced mood disorder alcohol use disorder alcohol withdrawal syndrome, uncomplicated opioid use disorder, in remission (as per pt last use was about 4-5 months ago) Treatment plan: Milieu/structure/supportive therapy Medical consult appreciated, see medical team note for more detailed info SW consultation for discharge plan and social issues Med management MVI, thiamine, folic acid paxil 20mg hs for mdd and anxiety seroquel 100mg po hs for mood stabilization naltrexon was offered but pt wants to think about it ativan prn and scheduled (today will be 2mg po bid scheduled) for alcohol withdrawals VS will be checked q6h and PRN of ativan will be given Family involvement SW evaluation for possible inpatient rehab Follow up on labs Will monitor closely Pt was educated about risk/benefits and alternatives of medications, coping strategies (safety plan, suicide prevention), relapse prevention, importance of follow up with psychiatrist and therapist, stay away from drugs/alcohol/smoking Medication Change: Yes (ativan decresaed, seroquel and paxil increased) Medical Record Reviewed: Yes Mental Status Examination - Homicidal Ideation Homicidal Ideation: No Goal/Treatment Plan - Goal/Treatment Plan Need for Continued Stay: Remain at risks for inpatient hospitalization, Severe depression anxiety, Discharge may exacerbated symptoms, Severe functional impairment Estimated Date of D/C: 08/13/17
[2017-08-07] MEDS: Multivitamin Therapeutic Tab PO SCH (08:45)
--- NOTE | 2017-08-07 08:56 | PCM.PYCHPN ---
Psychiatric Progress Note - Psychiatric Progress Note Patient seen today, length of contact: 25 min Patient Chief Complaint: anxious Problems Identified/Issues Discussed: I reviewed assessment and recent notes. I met with patient at bedside. Patient is fairly calm and oriented x3. Reports that he is feeling a little better but remains anxious with restless sleep. Denies any other new concerns. Appears anxious. Thought process is coherent and responses are relevant to questioning. Doesn't appear to be in any physical distress and he denies any new discomfort or pain. He is tolerating medications. Nursing notes indicate that patient has been cooperative and pleasant. He doesn' t appear to be demonstrating any signs of withdrawal. There were no behavioral issues overnight. Diagnostic Results: r/o MDD r/o bipolar II r/o substance induced mood disorder alcohol use disorder alcohol withdrawal syndrome, uncomplicated opioid use disorder, in remission (as per pt last use was about 4-5 months ago) Medication Change: Yes Medical Record Reviewed: Yes Mental Status Examination - Cognitive Function Memory: Intact Attention: WNL Concentration: Poor - Mood Mood: Anxious - Affect Affect: Constricted - Speech Speech: Appropriate - Formal Thought Process Formal Thought Process: No Impairment - Suicidal Ideation Suicidal Ideation: No - Homicidal Ideation Homicidal Ideation: No Goal/Treatment Plan - Goal/Treatment Plan Need for Continued Stay: Remain at risks for inpatient hospitalization, Severe depression anxiety, Discharge may exacerbated symptoms, Severe functional impairment Progress Toward Problem(s) and Goals/Treatment Plan: * c/w current tx and plan * Taper ativan 2 mg po bid as tolerated * Changed paxil to 30 mg HS for anxiety and poor sleep * No new weekend labs * Vitals reviewed and noted below: Selected Entries 08/06/17 08/06/17 07:00 15:00 Temperature 97.7 F Pulse Rate 59 L 77 Respiratory 20 Rate Blood Pressure 129/86 135/95 H Estimated Date of D/C: 08/13/17
--- NOTE | 2017-08-07 13:24 | PN ---
DATE: SUBJECTIVE: I saw Austin sitting out of bed to chair. He tells me he is not sleeping that well, he is getting Seroquel, but he wakes up every hour. Otherwise, he is eating and he does feel better and he wants to go home. He tells me he is going home on Wednesday. MEDICATIONS: He is currently on Ativan, folic acid, Geodon, Maalox, milk of magnesia, Nicoderm, Paxil, Seroquel, Thera-Tab, Tylenol, vitamin B1, and Zofran. PHYSICAL EXAMINATION: VITAL SIGNS: 98.2 temperature, 66 pulse, 111/71 blood pressure, and 20 respiratory rate. HEENT: Head is atraumatic and normocephalic. HEART: Regular rate. LUNGS: Clear to auscultation. ABDOMEN: Soft. EXTREMITIES: No edema. ASSESSMENT AND PLAN: He is trying to get better. He is hoping to go home on Wednesday. I discussed not smoking and not drinking again, I do think he is getting a little bit better with the depression. We will continue aggressive treatment and care and I will follow as per psychiatry. Harpreet Marley DO [facility]
[2017-08-08] MEDS: Multivitamin Therapeutic Tab PO SCH (08:27)
--- NOTE | 2017-08-08 09:05 | PCM.PYCHPN ---
Psychiatric Progress Note - Psychiatric Progress Note Patient seen today, length of contact: 25 min Patient Chief Complaint: better Problems Identified/Issues Discussed: I reviewed recent notes and met with patient at bedside. Patient is fairly calm and oriented x3. Reports that he is feeling a little better, feeling more hopeful than hopeless. Appearance is a little unkempt. Sleep is improved but still a little restless. Appears a little anxious but in good control. Fairly related. Thought process is coherent and responses are relevant to questioning. Doesn't appear to be in any physical distress and he denies any new discomfort or pain. He is tolerating medications. Nursing notes indicate that patient has been cooperative and pleasant but looks depressed. Intermittently visible on the unit. He doesn't appear to be demonstrating any signs of withdrawal. There were no behavioral issues over the weekend thus far. Diagnostic Results: r/o MDD r/o bipolar II r/o substance induced mood disorder alcohol use disorder alcohol withdrawal syndrome, uncomplicated opioid use disorder, in remission (as per pt last use was about 4-5 months ago) Medication Change: No Medical Record Reviewed: Yes Mental Status Examination - Cognitive Function Memory: Intact Attention: WNL Concentration: Poor - Mood Mood: Anxious - Affect Affect: Constricted - Speech Speech: Appropriate - Formal Thought Process Formal Thought Process: No Impairment - Suicidal Ideation Suicidal Ideation: No - Homicidal Ideation Homicidal Ideation: No Goal/Treatment Plan - Goal/Treatment Plan Need for Continued Stay: Remain at risks for inpatient hospitalization, Severe depression anxiety, Discharge may exacerbated symptoms, Severe functional impairment Progress Toward Problem(s) and Goals/Treatment Plan: * c/w current tx and plan * Appreciate f/u by Dr. Marley on 08/07/17~no new recommendations * Taper ativan 2 mg po bid to HS on 08/08/17, continue taper as tolerated * Changed paxil to 30 mg HS on 08/07/17 for anxiety and poor sleep * No new weekend labs * Vitals reviewed and noted below: Selected Entries 08/07/17 08/07/17 07:13 16:00 Temperature 98.2 F Pulse Rate 56 L 91 H Respiratory 20 Rate Blood Pressure 111/71 131/86 Estimated Date of D/C: 08/13/17
--- NOTE | 2017-08-08 14:21 | PN ---
SUBJECTIVE: He was sleepy when I saw him. He is easily awakable. I told him breakfast is ready, he is very hungry. He is getting ready to go eat. He is in good spirits. He is feeling better, looking better. He tells me he is going home tomorrow, I am not sure if that is true, but he is comfortable. No acute complaints. He is on Ativan, folic acid, Geodon, Maalox, milk of magnesia, Nicoderm, Paxil, Seroquel, Feratab, Tylenol, vitamin B1, and Zofran. PHYSICAL EXAMINATION: VITAL SIGNS: 98.2 temperature, 56 pulse, 111/71 blood pressure, 20 respiratory rate. HEENT: His head is atraumatic and normocephalic. HEART: Regular rate. LUNGS: Clear to auscultation. ABDOMEN: Soft. EXTREMITIES: No edema. ASSESSMENT AND PLAN: For the most part, I think he is improved. We discussed no more alcohol, no more smoking. We will see how far that gets him. He will be seen aggressively by psychiatry. He is here for alcohol abuser, intoxication, depression, bipolar, he is a smoker and he did sleep well yesterday. Continue with aggressive treatment and care as per Psychiatry on the patient. We will follow. Harpreet Marley DO
[2017-08-09] MEDS: Multivitamin Therapeutic Tab PO SCH (08:27)
--- NOTE | 2017-08-09 12:49 | PN ---
DATE: 08/09/2017 SUBJECTIVE: I saw him at breakfast. He is doing better. He is eating better. He is in good spirits. He is on Ativan, folic acid, Geodon, Maalox, milk of magnesia, NicoDerm, Paxil, Seroquel, Thera-Tabs, Tylenol, vitamin D1, Zofran. I discussed with him not smoking any more, and not drinking any more. He tells me that his mother is recovering alcoholic for many years and so is his brother, and feels that they will be good support since they have been on Alcoholic Anonymous for over 20 to 10 years and he is going to do the same thing he tells me. PHYSICAL EXAMINATION VITAL SIGNS: He has 98.2 temperature, 72 pulse, 112/85 blood pressure, 20 respiratory rate. HEENT: His head is atraumatic, normocephalic. HEART: Regular rate. LUNGS: Clear to auscultation. ABDOMEN: Soft, nontender. Positive bowel sounds. EXTREMITIES: No edema. MEDICATIONS: He is currently on Ativan, folic acid, Geodon, milk of magnesia, Maalox, NicoDerm, Paxil, Seroquel, Thera-Tabs, Tylenol, vitamin D1, Zofran. As per the psychiatry, continue with aggressive treatment and care. He is here for alcohol abuse and intoxication, depression, bipolar, smoker, and insomnia. He is not sleeping better. He is improved. There is something to stay off the alcohol and behave and go to AA and be a recovering alcoholic. Hope he can manage that on the outpatient, but as per psychiatry following medically. Harpreet Marley DO [facility]
--- NOTE | 2017-08-09 15:13 | PCM.PYCHPN ---
Psychiatric Progress Note - Psychiatric Progress Note Patient seen today, length of contact: 30min Patient Chief Complaint: "I have more positive attitude" Medical Problems: HTN, withdrawals Diagnostic Results: 08/05/17 07:00 08/05/17 07:00 Lab Results 08/05/17 07:00: Sodium 139, Potassium 3.8, Chloride 105, Carbon Dioxide 27, Anion Gap 11, BUN 16, Creatinine 0.8, Est GFR ( Amer) > 60, Est GFR (Non- Af Amer) > 60, Random Glucose 89, Calcium 9.0, Total Bilirubin 1.6 H, AST 23, ALT 33, Alkaline Phosphatase 62, Total Protein 6.7, Albumin 3.7, Globulin 3.0, Albumin/Globulin Ratio 1.2 08/05/17 07:00: WBC 8.0, RBC 4.67, Hgb 14.8 D, Hct 42.6, MCV 91.2, MCH 31.7, MCHC 34.7, RDW 13.7, Plt Count 228, MPV 9.6 08/04/17 06:00: TSH 3rd Generation 2.62 08/04/17 06:00: Hemoglobin A1c 5.8 08/04/17 06:00: Triglycerides 287 H, Cholesterol 207 H, LDL Cholesterol Direct 106, HDL Cholesterol 52 08/03/17 21:00: Urine Opiates Screen Negative, Urine Methadone Screen Negative, Ur Barbiturates Screen Negative, Ur Phencyclidine Scrn Negative, Ur Amphetamines Screen Negative, U Benzodiazepines Scrn Negative, U Oth Cocaine Metabols Negative, U Cannabinoids Screen Negative 08/03/17 21:00: Urine Color Yellow, Urine Appearance Clear, Urine pH 6.0, Ur Specific [place] <= 1.005, Urine Protein Negative, Urine Glucose (UA) Negative, Urine Ketones Negative, Urine Blood Moderate H, Urine Nitrate Negative, Urine Bilirubin Negative, Urine Urobilinogen 0.2, Ur Leukocyte Esterase Negative, Urine RBC 0 - 2, Urine WBC 0 - 2, Ur Epithelial Cells 0 - 2, Urine Bacteria Trace 08/03/17 20:05: Alcohol, Quantitative 368 H* 08/03/17 20:05: Salicylates < 1 L, Acetaminophen < 10.0 L 08/03/17 20:05: Sodium 149 H, Potassium 3.9, Chloride 110, Carbon Dioxide 23, Anion Gap 20, BUN 10, Creatinine 0.8, Est GFR ( Amer) > 60, Est GFR (Non- Af Amer) > 60, Random Glucose 108, Calcium 9.4, Total Bilirubin 0.7, AST 27, ALT 26, Alkaline Phosphatase 74, Total Protein 7.9, Albumin 4.3, Globulin 3.5, Albumin/Globulin Ratio 1.2 08/03/17 20:05: WBC 7.5, RBC 5.27, Hgb 17.0 D, Hct 48.0, MCV 91.1, MCH 32.3, MCHC 35.4, RDW 13.8, Plt Count 277, MPV 9.7, Gran % 39.0 L, Lymph % (Auto) 50.9 H, [place] % (Auto) 5.5, Eos % (Auto) 4.1, Baso % (Auto) 0.5, Gran # 2.93, Lymph # 3.8 H, [place] # 0.4, Eos # 0.3, Baso # 0.04 Vital Signs Temp Pulse Resp BP Pulse Ox 08/05/17 07:00 97.8 F 57 L 20 121/80 08/05/17 06:50 97.8 F 60 20 121/80 08/04/17 16:00 95 H 125/89 08/04/17 07:03 97.9 F 84 17 94/57 L 08/03/17 23:09 98.3 F 93 H 18 125/74 95 08/03/17 19:38 98.8 F 120 H 16 131/97 H 96 Temp Pulse Resp BP Pulse Ox 97.8 F 78 20 130/84 95 08/05/17 07:00 08/05/17 16:00 08/05/17 07:00 08/05/17 16:00 08/03/17 23:09 Temp Pulse Resp BP Pulse Ox 98.2 F 72 20 112/85 95 08/07/17 07:13 08/08/17 16:00 08/07/17 07:13 08/08/17 16:00 08/03/17 23:09 DSM 5 Symptoms Update: shortly pt is 47 yo male with self reported h/o PTSD, no h/o psychiatric admissions, pt has significant h/o alcohol use disorder more than 10 inpatient rehabs and detoxes, h/o opioid addiction, was brought in by his brother for evaluation of depression and suicidal ideation with plan to stab himself in the neck, pt reported these feelings to his AA meeting and brother was contacted by them. pt was seen at TV room, presented to be alert, oriented, pleasant, watching TV pt reported his depression is "better, I am able to concentrate more, I also have positive attitude". pt denied thoughts of harming self or others. no physical signs of withdrawals, VS WNL. Psychosis: no signs of psychosis pt tolerated meds well, no side effects observed or reported, AIMS 0, no EPS. Review of Systems: see Medical consult. MSE:pt is alert and oriented, less swelling of his face, improved personal hygiene, fair ADLs. Pt deemed to be reliable historian, well related to this chief writer, pt looks older stated age, there is no psychomotor agitation/retardation , speech was: normal rate, tone, quality and quantity, eye contact: fair, mood described:"I feel better", affect:constricted, mood congruent, thought process: goal directed, thought content: pt presented to be hopeless, denied SI/ HI during the interview, contracted for safety, pt denied v/a/t hallucinations, but has h/o visual hallucinations when intoxicated, denied paranoid ideation, insight/judgment:limited , impulses are well controlled. Impression: r/o MDD r/o bipolar II r/o substance induced mood disorder alcohol use disorder alcohol withdrawal syndrome, uncomplicated opioid use disorder, in remission (as per pt last use was about 4-5 months ago) Treatment plan: Milieu/structure/supportive therapy Medical consult appreciated, see medical team note for more detailed info consultation for discharge plan and social issues Med management MVI, thiamine, folic acid paxil 40mg hs for mdd and anxiety seroquel 150mg po hs for mood stabilization naltrexon was offered but pt wants to think about it ativan prn vistaril for anxiety VS will be checked q6h and PRN of ativan will be given Family involvement SW evaluation for possible inpatient rehab Follow up on labs Will monitor closely Pt was educated about risk/benefits and alternatives of medications, coping strategies (safety plan, suicide prevention), relapse prevention, importance of follow up with psychiatrist and therapist, stay away from drugs/alcohol/smoking possible d/c tomorrow Medication Change: Yes (paxil and seroquel increaasekeith) Medical Record Reviewed: Yes Goal/Treatment Plan - Goal/Treatment Plan Need for Continued Stay: Remain at risks for inpatient hospitalization, Severe depression anxiety, Discharge may exacerbated symptoms, Severe functional impairment Estimated Date of D/C: 08/10/17
[2017-08-09] MEDS ORDERED: QUEtiapine 100 MG, QUEtiapine 50 MG PO SCH (22:00)
[2017-08-10 06:46] VITALS: BP 102/69; PULSE 58; RESP 18; TEMP 97.3; O2SAT 97
[2017-08-10] MEDS: Multivitamin Therapeutic Tab PO SCH (08:40)
--- NOTE | 2017-08-10 12:19 | PN ---
DATE: SUBJECTIVE: I saw Austin in his room this morning. He ate breakfast well. He tells me he is leaving today. He is doing a lot better. He is going to go home. He is going to avoid any of those old friends he has that drink. He is going to stay with his mother and family members who are recovering alcoholics and they are good support. He will be on Ativan, folic acid, Geodon, Maalox, milk of magnesia, Nicoderm, Plavix, quetiapine, Feratab, Tylenol, Vistaril, vitamin B1, and Zofran. PHYSICAL EXAMINATION VITAL SIGNS: He has a 97.3 temperature, 58 pulse, 102/69 blood pressure, 18 respiratory rate, 97% O2 sat on room air. HEENT: His head is atraumatic and normocephalic. HEART: Regular rate. LUNGS: Clear to auscultation. ABDOMEN: Soft. EXTREMITIES: No edema. ASSESSMENT AND PLAN: I am hoping he does not drink anymore. He understands the severity and the importance of that and he will not go back to smoking either and hopefully he will do well if he goes home today. He was here for alcohol abuse intoxication, depression, bipolar, smoker, and family which is now doing a lot better with sleeping. Harpreet Marley DO
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
== END 2017-08-10 11:38 | disposition home or self-care (01) | DRG 430 ==
LOC: ED 19:32 → PSYC 22:33
PROVIDERS: ADMIT Psychiatry & Neurology Psychiatry; ATTEND Psychiatry & Neurology Psychiatry
DX: F31.81 Bipolar II disorder (principal); F10.239 Alcohol dependence with withdrawal, unspecified; F17.210 Nicotine dependence, cigarettes, uncomplicated; F43.10 Post-traumatic stress disorder, unspecified; R45.851 Suicidal ideations; I10 Essential (primary) hypertension; F11.21 Opioid dependence, in remission; Y90.8 Blood alcohol level of 240 mg/100 ml or more; R31.9 Hematuria, unspecified